=== PATIENT | female | born 1940 | race Caucasian/White ===

== ENCOUNTER 2017-05-09 18:00 | Inpatient (IN) | payer MEDICARE, OTHER ==
--- NOTE | 2017-05-09 18:10 | EDM.PDOC ---
<Deejay Vergara - Last Filed: 05/09/17 18:08> ED HPI GENERAL MEDICAL PROBLEM - General Stated Complaint: INFLUENZA/PNEUMONIA [id number] Time Seen by Provider: 05/09/17 19:05 Source of Information: Reports: Patient History Limitations: Reports: No Limitations - History of Present Illness INITIAL COMMENTS - FREE TEXT/NARRATIVE: This 76 yo female patient was sent to the ED by Dr. Kim ([facility]) due to testing positive for Influenza A and having bilateral pneumonia. Dr. Kim contacted the hospitalist, but was advised to send the patient to the ED for further evaluation and possible admission. - Related Data Allergies Allergy/AdvReac Type Severity Reaction Status Date / Time No Known Allergies Allergy Verified 05/09/17 18:28 Home Meds: Home Meds . [No Known Home Meds] 05/09/17 [History] Course - Vital Signs Last Recorded V/S: Last Vital Signs Temp 99.2 F 05/10/17 03:00 Pulse 76 05/10/17 03:00 Resp 14 05/10/17 03:00 BP 128/60 05/10/17 03:00 Pulse Ox 96 05/10/17 03:00 - Orders/Labs/Meds Orders: Active Orders 24 hr Category Date Time Status CULTURE BLOOD [BC] Stat Lab 05/09/17 18:25 Received CULTURE BLOOD [BC] Stat Lab 05/09/17 18:30 Received Levofloxacin/Dextrose 5%-Water [Levaquin in D5W 750 MG/ Med 05/09/17 21:00 Active 150 ML] 750 mg Premix Bag 1 bag IV Q24H Blood Culture x2 Reflex Set [OM.PC] Stat Oth 05/09/17 18:06 Ordered Medication Orders Acetaminophen (Tylenol) 650 mg PO Q4H PRN PRN Reason: Pain (Mild 1-3)/fever Albuterol/Ipratropium (Duoneb 3.0-0.5 Mg/3 Ml) 3 ml NEB Q4H PRN PRN Reason: shortness of breath/wheezing Docusate Sodium (Colace) 100 mg PO BID PRN PRN Reason: Constipation Enoxaparin Sodium (Lovenox) 40 mg SUBCUT DAILY JENNIFER Levofloxacin/Dextrose 750 mg/ (Premix) 150 mls @ 100 mls/hr IV Q24H JENNIFER Last Admin: 05/09/17 21:31 Dose: 100 mls/hr Sodium Chloride (Normal Saline) 1,000 mls @ 100 mls/hr IV ASDIRECTED [facility] Last Admin: 05/09/17 21:36 Dose: 100 mls/hr Ondansetron HCl (Zofran) 4 mg IVPUSH Q6H PRN PRN Reason: Nausea/Vomiting Oseltamivir Phosphate (Tamiflu) 75 mg PO BID [facility] Stop: 05/14/17 09:01 Polyethylene Glycol (Miralax) 17 gm PO DAILY PRN PRN Reason: Constipation Zolpidem Tartrate (Ambien) 5 mg PO BEDTIME PRN PRN Reason: Sleep Labs: Laboratory Tests 05/09/17 05/09/17 05/09/17 Range/Units 18:25 18:25 18:25 WBC 5.1 (5.0-10.0) 10^3/uL RBC 4.51 (4.2-5.4) 10^6/uL Hgb 13.2 (12.0-16.0) g/dL Hct 39.6 (37.0-47.0) % MCV 87.8 (80-100) fL MCH 29.3 (27.0-34.0) pg MCHC 33.3 (33.0-35.0) g/dL Plt Count 192 (150-450) 10^3/uL Neut % (Auto) 67.3 (42.2-75.2) % Lymph % (Auto) 20.2 L (20.5-50.1) % [place] % (Auto) 12.3 H (2-8) % Eos % (Auto) 0.0 L (1.0-3.0) % Baso % (Auto) 0.2 (0.0-1.0) % Sodium 127 L (135-145) mmol/L Potassium 3.6 (3.6-5.0) mmol/L Chloride 90 L (101-111) mmol/L Carbon Dioxide 29.0 (21.0-31.0) mmol/L Anion Gap 11.6 BUN 9 (7-18) mg/dL Creatinine 0.6 (0.6-1.3) mg/dL Est Cr Clr Drug Dosing 68.05 mL/min Estimated GFR (MDRD) > 60 BUN/Creatinine Ratio 15.00 Glucose 96 (74-105) mg/dL Lactic Acid 1.0 (0.5-2.2) mmol/L Calcium 8.3 L (8.4-10.2) mg/dl Total Bilirubin 0.5 (0.2-1.0) mg/dL AST 47 H (10-42) IU/L ALT 25 (10-60) IU/L Alkaline Phosphatase 37 L (42-121) IU/L B-Natriuretic Peptide (0-100) pg/ml Total Protein 7.1 (6.7-8.2) g/dl Albumin 3.6 (3.2-5.5) g/dl Globulin 3.5 Albumin/Globulin Ratio 1.03 / Range/Units 18:25 WBC (5.0-10.0) 10^3/uL RBC (4.2-5.4) 10^6/uL Hgb (12.0-16.0) g/dL Hct (37.0-47.0) % MCV (80-100) fL MCH (27.0-34.0) pg MCHC (33.0-35.0) g/dL Plt Count (150-450) 10^3/uL Neut % (Auto) (42.2-75.2) % Lymph % (Auto) (20.5-50.1) % [place] % (Auto) (2-8) % Eos % (Auto) (1.0-3.0) % Baso % (Auto) (0.0-1.0) % Sodium (135-145) mmol/L Potassium (3.6-5.0) mmol/L Chloride (101-111) mmol/L Carbon Dioxide (21.0-31.0) mmol/L Anion Gap BUN (7-18) mg/dL Creatinine (0.6-1.3) mg/dL Est Cr Clr Drug Dosing mL/min Estimated GFR (MDRD) BUN/Creatinine Ratio Glucose (74-105) mg/dL Lactic Acid (0.5-2.2) mmol/L Calcium (8.4-10.2) mg/dl Total Bilirubin (0.2-1.0) mg/dL AST (10-42) IU/L ALT (10-60) IU/L Alkaline Phosphatase (42-121) IU/L B-Natriuretic Peptide 31 (0-100) pg/ml Total Protein (6.7-8.2) g/dl Albumin (3.2-5.5) g/dl Globulin Albumin/Globulin Ratio Meds: Medications Generic Name Dose Route Start Last Admin Trade Name Jaeq PRN Reason Stop Dose Admin Acetaminophen 650 mg 05/09/17 20:52 Tylenol PO Q4H PRN Pain (Mild 1-3)/fever Albuterol/Ipratropium 3 ml 05/09/17 20:52 Duoneb 3.0-0.5 Mg/3 Ml NEB Q4H PRN shortness of breath/wheezing Docusate Sodium 100 mg 05/09/17 20:52 Colace PO BID PRN Constipation Enoxaparin Sodium 40 mg 05/10/17 09:00 Lovenox SUBCUT DAILY JENNIFER Levofloxacin/Dextrose 750 mg/ 150 mls @ 100 mls/hr 05/09/17 21:00 05/09/17 21 :31 Premix IV 100 mls/hr Q24H JENNIFER Administration Sodium Chloride 1,000 mls @ 100 mls/hr 05/09/17 21:00 05/09/17 21:36 Normal Saline IV 100 mls/hr ASDIRECTED JENNIFER Administration Ondansetron HCl 4 mg 05/09/17 20:52 Zofran IVPUSH Q6H PRN Nausea/Vomiting Oseltamivir Phosphate 75 mg 05/10/17 09:00 Tamiflu PO 05/14/17 09:01 BID JENNIFER Polyethylene Glycol 17 gm 05/09/17 20:52 Miralax PO DAILY PRN Constipation Zolpidem Tartrate 5 mg 05/09/17 20:52 Ambien PO BEDTIME PRN Sleep Discontinued Medications Generic Name Dose Route Start Last Admin Trade Name Jaeq PRN Reason Stop Dose Admin Sodium Chloride 1,000 mls @ 500 mls/hr 05/09/17 19:19 05/09/17 20:27 Normal Saline IV 05/09/17 21:18 200 mls/hr .BOLUS ONE Administration Oseltamivir Phosphate 75 mg 05/09/17 21:00 05/09/17 21:30 Tamiflu PO Not Given BID JENNIFER Departure - Departure Disposition: Admitted As Inpatient 68 Clinical Impression: Pneumonia, Influenza A, Mild dehydration - Discharge Information <Rachel Duran - Last Filed: 05/10/17 06:16> ED ROS GENERAL - Review of Systems Review Of Systems: See Below Constitutional: Reports: Fever, Chills, Weakness HEENT: Reports: Throat Pain (resolved) Respiratory: Reports: Shortness of Breath, Cough (non productive). Denies: Sputum Cardiovascular: Denies: Chest Pain GI/Abdominal: Reports: Decreased Appetite Musculoskeletal: Reports: Other (aches re) Skin: Reports: No Symptoms, Pallor Neurological: Reports: No Symptoms ED EXAM, GENERAL - Physical Exam Exam: See Below General Appearance: Alert, No Apparent Distress Eye Exam: Bilateral Eye: EOMI Ears: Normal External Exam, Normal TMs Nose: Normal Inspection Throat/Mouth: Normal Inspection, Other (dry membranes) Head: Atraumatic, Normocephalic Neck: Full Range of Motion Respiratory/Chest: Rhonchi, Wheezing Cardiovascular: Normal Peripheral Pulses, Regular Rate, Rhythm GI/Abdominal: Normal Bowel Sounds Back Exam: Normal Inspection, Full Range of Motion Extremities: Normal Inspection, Normal Range of Motion Neurological: Alert, Oriented, Normal Cognition Departure - Departure Time of Disposition: 20:20 Condition: Good
[2017-05-09 18:55] LABS: CHLORIDE,CL 90 mmol/L (101-111); SODIUM,NA 127 mmol/L (135-145)
[2017-05-09] MEDS ORDERED: Sodium Chloride 0.9% 1,000 ML IV ONE (19:19)
[2017-05-09] MEDS ORDERED: Acetaminophen 325 MG Tab PO PRN (20:52)
[2017-05-09] MEDS ORDERED: Ondansetron 4 MG/2 ML SDV IVPUSH PRN (20:52)
[2017-05-09] MEDS ORDERED: Polyethylene Glycol 3350 Powder 17 GM Packet PO PRN (20:52)
[2017-05-09] MEDS ORDERED: Docusate Sodium 100 MG Cap PO PRN (20:52)
[2017-05-09] MEDS ORDERED: Albuterol/Ipratropium 3.0-0.5 MG/3 ML Neb Soln NEB PRN (20:52)
[2017-05-09] MEDS ORDERED: Oseltamivir 75 MG Cap PO SCH (21:00)
--- NOTE | 2017-05-09 21:12 | PCM.HP ---
H&P History of Present Illness - General Date of Service: 05/09/17 Admit Problem/Dx: Admission Diagnosis/Problem Admission Diagnosis/Problem Pneumonia and influenza Source of Information: Patient History Limitations: Reports: No Limitations - History of Present Illness Initial Comments - Free Text/Narative: 69-year-old female without and best medical history and does not take medications presented to the emergency room from clinic for having pneumonia and influenza. Patient stated that since last Saturday she started having cold symptoms of fever, chills, cough, weakness, nausea and vomiting. She had the nausea and vomiting for 2 days and stopped afterward. She stated that her weakness progressively got worse. Her appetite is low. She denies headache, change in vision, sinus congestion, sore throat, chest pain, shortness breath, abdominal pain, diarrhea, or symptoms, lower extremities edema, rash, unilateral weakness/numbness/again, any other symptoms or concern. At the clinic she was found to be positive for influenza A. Rapid strep test was negative. Chest x-ray reported "Abnormal inflammatory changes including multilobar pneumonia, new since September 2006 comparison film." Patient then was sent to the emergency room and her workup reported WBC 5.1. Monocytes 12.3. Hemoglobin 13.2. Platelet 192. Sodium 127. Potassium 3.6. Lactic acid 1.0. Creatinine 0.6. AST 47. AST 25. Alkaline phosphatase because 77. BNP 31. Blood cultures were ordered. - Related Data Allergies/Adverse Reactions: Allergies Allergy/AdvReac Type Severity Reaction Status Date / Time No Known Allergies Allergy Verified 05/09/17 18:28 Home Medications: Home Meds . [No Known Home Meds] 05/09/17 [History] Past Medical History - Past Health History Medical/Surgical History: Denies Medical/Surgical History Social & Family History - Tobacco Use Smoking Status *Q: Never Smoker - Caffeine Use Caffeine Use: Reports: None - Recreational Drug Use Recreational Drug Use: No H&P Review of Systems - Review of Systems: Review Of Systems: ROS reveals no pertinent complaints other than HPI. Exam - Exam Exam: See Below - Vital Signs Vital Signs: Last Vital Signs Temp 37.2 C 05/09/17 20:15 Pulse 70 05/09/17 20:15 Resp 16 05/09/17 20:15 BP 136/63 05/09/17 20:15 Pulse Ox 95 05/09/17 20:15 Weight: 68.946 kg - Exam General: Alert, Oriented, Cooperative. No: Moderate Distress, Severe Distress, Sedated, Lethargic, Obtunded HEENT: Conjunctiva Clear, EACs Clear, EOMI, Hearing Intact, Nares Patent, Normal Nasal Septum, Posterior Pharynx Clear, Pupils Equal, Pupils Reactive, TMs Clear, Other (Dry lips), PERRLA Neck: Supple, Trachea Midline, +2 Carotid Pulse wo Bruit Lungs: Clear to Auscultation, Normal Respiratory Effort, Crackles. No: Decreased Breath Sounds, Rales, Rhonchi, Rub, Stridor, Wheezing Cardiovascular: Regular Rate, Regular Rhythm GI/Abdominal Exam: Normal Bowel Sounds, Soft, Non-Tender, No Organomegaly, No Distention, No Abnormal Bruit (Female) Exam: Deferred Rectal (Female) Exam: Deferred Back Exam: Normal Inspection, Full Range of Motion. No: CVA Tenderness (L), CVA Tenderness (R) Extremities: Normal Inspection, Normal Range of Motion, Non-Tender, No Pedal Edema, Normal Capillary Refill Skin: Warm, Dry, Intact Neurological: Cranial Nerves Intact, Strength Equal Bilateral, Normal Speech, Normal Tone, Sensation Intact Neuro Extensive - Mental Status: Alert, Oriented x3, Normal Mood/Affect Psychiatric: Alert, Normal Affect - Patient Data Result Diagrams: 05/09/17 18:25 05/09/17 18:25 *Q Meaningful Use (ADM) - VTE *Q VTE Criteria *Q: - Stroke *Q Stroke Criteria *Q: - AMI *Q AMI Criteria *Q: - Problem List (1) Pneumonia SNOMED Code(s): 990578582 ICD Code: J18.9 - PNEUMONIA, UNSPECIFIED ORGANISM Status: Acute Current Visit: Yes (2) Influenza A SNOMED Code(s): 857478765 ICD Code: J10.1 - FLU DUE TO OTH IDENT INFLUENZA VIRUS W OTH RESP MANIFEST Status: Acute Current Visit: Yes (3) Hyponatremia SNOMED Code(s): 27388707 ICD Code: E87.1 - HYPO-OSMOLALITY AND HYPONATREMIA Status: Acute Current Visit: Yes (4) Mild dehydration SNOMED Code(s): 8259448206930 ICD Code: E86.0 - DEHYDRATION Status: Acute Current Visit: Yes Problem List Initiated/Reviewed/Updated: Yes Orders Last 24hrs: Active Orders 24 hr Category Date Time Status Patient Status [ADT] Routine ADT 05/09/17 20:52 Ordered Height and Weight [RC] DAILY Care 05/09/17 20:52 Ordered Intake and Output [RC] Q6H Care 05/09/17 20:58 Ordered Notify Provider Vital Signs [RC] ASDIRECTED Care 05/09/17 20:59 Ordered Oxygen Therapy [RC] PRN Care 05/09/17 20:52 Ordered RT Aerosol Therapy [RC] ASDIRECTED Care 05/09/17 21:03 Ordered Up ad Donita [RC] ASDIRECTED Care 05/09/17 20:52 Ordered VTE/DVT Education [RC] PER UNIT ROUTINE Care 05/09/17 20:52 Ordered Vital Signs [RC] Q4H Care 05/09/17 20:52 Ordered PT Evaluation and Treatment [CONS] Routine Cons 05/09/17 20:52 Ordered Regular Diet [DIET] Diet 05/09/17 Breakfast Ordered BASIC METABOLIC PANEL,BMP [CHEM] AM Lab 05/10/17 05:11 Ordered CBC WITH AUTO DIFF [HEME] AM Lab 05/10/17 05:11 Ordered CULTURE SPUTUM + SMEAR [RM] Stat Lab 05/09/17 20:52 Ordered MAGNESIUM [CHEM] AM Lab 05/10/17 05:11 Ordered Acetaminophen [Tylenol] Med 05/09/17 20:52 Ordered 650 mg PO Q4H PRN Albuterol/Ipratropium [DuoNeb 3.0-0.5 MG/3 ML] Med 05/09/17 20:52 Ordered 3 ml NEB Q4H PRN Docusate Sodium [Colace] Med 05/09/17 20:52 Ordered 100 mg PO BID PRN Enoxaparin [Lovenox] Med 05/10/17 09:00 Ordered 40 mg SUBCUT DAILY Levofloxacin/Dextrose 5%-Water [Levaquin in D5W 750 MG/ Med 05/09/17 21:00 Active 150 ML] 750 mg Premix Bag 1 bag IV Q24H Ondansetron [Zofran] Med 05/09/17 20:52 Ordered 4 mg IVPUSH Q6H PRN Oseltamivir [Tamiflu] Med 05/09/17 21:00 Hold 75 mg PO BID Polyethylene Glycol 3350 [MiraLAX] Med 05/09/17 20:52 Ordered 17 gm PO DAILY PRN Sodium Chloride 0.9% [Normal Saline] 1,000 ml Med 05/09/17 21:00 Ordered IV ASDIRECTED Zolpidem [Ambien] Med 05/09/17 20:52 Ordered 5 mg PO BEDTIME PRN Resuscitation Status Routine Resus Stat 05/09/17 20:52 Ordered Medication Orders Sodium Chloride (Normal Saline) 1,000 mls @ 500 mls/hr IV .BOLUS ONE Stop: 05/09/17 21:18 Last Admin: 05/09/17 20:27 Dose: 200 mls/hr Levofloxacin/Dextrose 750 mg/ (Premix) 150 mls @ 100 mls/hr IV Q24H JENNIFER Oseltamivir Phosphate (Tamiflu) 75 mg PO BID JENNIFER Assessment/Plan Comment:: 76-year-old the female without significant past medical history and does not take medications resented with flulike symptoms for 5 days and tested positive for influenza A and chest x-ray showed multilobular infiltrates. She had hypernatremia and her sodium is 127 on admission Plan: -Saline at 500 mL per hour. Then continue IV fluid infusion of normal saline at 100 mL per hour -Tamiflu -Levaquin IV daily -Limited free water consumption to 500 mL per 24 hour for the hypernatremia -Incentive spirometer and flutter device -Awaiting blood cultures -Ordered sputum culture Lovenox for DVT prophylaxis CODE STATUS: Full
[2017-05-09] MEDS: Levofloxacin/Dextrose 5%-Water 750 MG in Premix Bag 1 BAG IV SCH (21:31)
[2017-05-09] MEDS: Sodium Chloride 0.9% 1,000 ML IV SCH (21:36)
[2017-05-10 06:53] LABS: CHLORIDE,CL 95 mmol/L (101-111); SODIUM,NA 130 mmol/L (135-145)
[2017-05-10] MEDS: Sodium Chloride 0.9% 1,000 ML IV SCH (08:11)
[2017-05-10] MEDS: OSELTAMIVIR 75 MG PO SCH ×2 (08:17→21:10)
[2017-05-10] MEDS: Enoxaparin 40 MG/0.4 ML Syringe SUBCUT SCH (08:19)
[2017-05-10] MEDS ORDERED: Magnesium Sulfate/Water 2 GM in Premix Bag 1 BAG IV SCH (08:26)
--- NOTE | 2017-05-10 11:28 | PCM.PN ---
- General Info Date of Service: 05/10/17 Admission Dx/Problem (Free Text): Admission Diagnosis/Problem Admission Diagnosis/Problem Pneumonia and influenza Subjective Update: Patient stated that she is feeling better. Her cough improved. She still feeling weak. She denies fever, chills, nausea, vomiting, chest pain, shortness breath, abdominal pain, diarrhea, urinary symptoms, unilateral weakness/numbness /tingling, lower extension edema, any other symptoms or concerns. - Patient Data Vitals - Most Recent: Last Vital Signs Temp 36.6 C 05/10/17 11:00 Pulse 72 05/10/17 11:00 Resp 20 05/10/17 11:00 BP 108/59 L 05/10/17 11:00 Pulse Ox 95 05/10/17 11:00 Weight - Most Recent: 68.946 kg I&O - Last 24 Hours: Intake & Output 05/09/17 05/10/17 05/10/17 22:59 06:59 14:59 Intake Total 200 1342 240 Output Total 300 900 Balance -100 442 240 Lab Results Last 24 Hours: Laboratory Results - last 24 hr 05/10/17 05/10/17 Range/Units 06:11 06:11 WBC 5.2 (5.0-10.0) 10^3/uL RBC 4.25 (4.2-5.4) 10^6/uL Hgb 12.3 (12.0-16.0) g/dL Hct 37.5 (37.0-47.0) % MCV 88.2 (80-100) fL MCH 28.9 (27.0-34.0) pg MCHC 32.8 L (33.0-35.0) g/dL Plt Count 182 (150-450) 10^3/uL Neut % (Auto) 66.8 (42.2-75.2) % Lymph % (Auto) 18.9 L (20.5-50.1) % [place] % (Auto) 14.3 H (2-8) % Eos % (Auto) 0.0 L (1.0-3.0) % Baso % (Auto) 0.0 (0.0-1.0) % Sodium 130 L (135-145) mmol/L Potassium 3.8 (3.6-5.0) mmol/L Chloride 95 L (101-111) mmol/L Carbon Dioxide 27.0 (21.0-31.0) mmol/L Anion Gap 11.8 BUN 8 (7-18) mg/dL Creatinine 0.6 (0.6-1.3) mg/dL Est Cr Clr Drug Dosing 68.05 mL/min Estimated GFR (MDRD) > 60 BUN/Creatinine Ratio 13.33 Glucose 94 (74-105) mg/dL Calcium 8.1 L (8.4-10.2) mg/dl Magnesium 1.7 L (1.8-2.5) mg/dL Total Bilirubin 0.4 (0.2-1.0) mg/dL AST 38 (10-42) IU/L ALT 21 (10-60) IU/L Alkaline Phosphatase 34 L (42-121) IU/L Total Protein 6.1 L (6.7-8.2) g/dl Albumin 2.9 L (3.2-5.5) g/dl Globulin 3.2 Albumin/Globulin Ratio 0.91 Med Orders - Current: Current Medications Acetaminophen (Tylenol) 650 mg PO Q4H PRN PRN Reason: Pain (Mild 1-3)/fever Albuterol/Ipratropium (Duoneb 3.0-0.5 Mg/3 Ml) 3 ml NEB Q4H PRN PRN Reason: shortness of breath/wheezing Docusate Sodium (Colace) 100 mg PO BID PRN PRN Reason: Constipation Enoxaparin Sodium (Lovenox) 40 mg SUBCUT DAILY [facility] Last Admin: 05/10/17 08:19 Dose: Not Given Levofloxacin/Dextrose 750 mg/ (Premix) 150 mls @ 100 mls/hr IV Q24H [facility] Last Admin: 05/09/17 21:31 Dose: 100 mls/hr Sodium Chloride (Normal Saline) 1,000 mls @ 100 mls/hr IV ASDIRECTED [facility] Last Admin: 05/10/17 08:11 Dose: 100 mls/hr Ondansetron HCl (Zofran) 4 mg IVPUSH Q6H PRN PRN Reason: Nausea/Vomiting Oseltamivir Phosphate (Tamiflu) 75 mg PO BID [facility] Stop: 05/14/17 09:01 Last Admin: 05/10/17 08:17 Dose: 75 mg Polyethylene Glycol (Miralax) 17 gm PO DAILY PRN PRN Reason: Constipation Zolpidem Tartrate (Ambien) 5 mg PO BEDTIME PRN PRN Reason: Sleep Discontinued Medications Sodium Chloride (Normal Saline) 1,000 mls @ 500 mls/hr IV .BOLUS ONE Stop: 05/09/17 21:18 Last Admin: 05/09/17 20:27 Dose: 200 mls/hr Magnesium Sulfate 2 gm/ Premix 50 mls @ 25 mls/hr IV Q2H [facility] Stop: 05/10/17 10:25 Last Admin: 05/10/17 09:29 Dose: 25 mls/hr Oseltamivir Phosphate (Tamiflu) 75 mg PO BID [facility] Last Admin: 05/09/17 21:30 Dose: Not Given - Exam General: Alert, Oriented, Cooperative, No Acute Distress, Other (She is looking weak and frail). No: Mild Distress, Moderate Distress, Severe Distress, Sedated , Lethargic, Obtunded HEENT: Pupils Equal, Pupils Reactive, EOMI, Mucous Membr. Moist/[place] Neck: Supple, Trachea Midline, No JVD Lungs: Normal Respiratory Effort, Crackles (In the left mid burk). No: Rhonchi, Stridor, Wheezing Cardiovascular: Regular Rate, Regular Rhythm GI/Abdominal Exam: Normal Bowel Sounds, Soft, Non-Tender, No Organomegaly, No Distention, No Abnormal Bruit, No Mass (Female) Exam: Deferred Back Exam: No: CVA Tenderness (L), CVA Tenderness (R) Extremities: Normal Inspection, Normal Range of Motion, Non-Tender, No Pedal Edema, Normal Capillary Refill Skin: Warm, Dry, Intact Neurological: No New Focal Deficit Psy/Mental Status: Alert, Normal Affect, Normal Mood - Problem List & Annotations (1) Pneumonia SNOMED Code(s): 661833590 Code(s): J18.9 - PNEUMONIA, UNSPECIFIED ORGANISM Status: Acute Current Visit: Yes (2) Influenza A SNOMED Code(s): 977196948 Code(s): J10.1 - FLU DUE TO OTH IDENT INFLUENZA VIRUS W OTH RESP MANIFEST Status: Acute Current Visit: Yes (3) Hyponatremia SNOMED Code(s): 41008179 Code(s): E87.1 - HYPO-OSMOLALITY AND HYPONATREMIA Status: Acute Current Visit: Yes (4) Mild dehydration SNOMED Code(s): 4666850655419 Code(s): E86.0 - DEHYDRATION Status: Acute Current Visit: Yes - Problem List Review Problem List Initiated/Reviewed/Updated: Yes - My Orders Last 24 Hours: My Active Orders 05/09/17 21:11 Incentive Spirometry [RT Incentive Spirometry] [RC] ASDIRECTED RT Chest Physiotherapy [RC] ASDIRECTED 05/10/17 09:00 Oseltamivir [Tamiflu] 75 mg PO BID 05/10/17 10:25 Telemetry Monitoring [Cardiac Monitoring] [RC] . DIRECTED 05/10/17 Breakfast Fluid Restriction [DIET] 05/11/17 05:11 BASIC METABOLIC PANEL,BMP [CHEM] AM CBC WITH AUTO DIFF [HEME] AM - Plan Plan:: 76-year-old the female without significant past medical history and does not take medications resented with flulike symptoms for 5 days and tested positive for influenza A and chest x-ray showed multilobular infiltrates. She had hypernatremia and her sodium is 127 on admission Sodium level improved from 127 to 1:30 Plan: -Patient received 2-3 L of normal saline for IV -Continue Tamiflu by mouth and Levaquin IV daily -Continue to limit free water consumption to 500 mL per 24 hour for the hypernatremia -Incentive spirometer and flutter device -Awaiting blood cultures -sputum culture ordered Lovenox for DVT prophylaxis CODE STATUS: Full
[2017-05-10] MEDS: Levofloxacin/Dextrose 5%-Water 750 MG in Premix Bag 1 BAG IV SCH (21:01)
[2017-05-10] MEDS: Zolpidem 5 MG Tab PO PRN (21:28)
[2017-05-11 07:03] LABS: CHLORIDE,CL 99 mmol/L (101-111); SODIUM,NA 134 mmol/L (135-145)
[2017-05-11] MEDS: Enoxaparin 40 MG/0.4 ML Syringe SUBCUT SCH (09:03)
[2017-05-11] MEDS: OSELTAMIVIR 75 MG PO SCH ×2 (09:03→20:10)
--- NOTE | 2017-05-11 11:22 | PCM.PN ---
- General Info Date of Service: 05/11/17 Admission Dx/Problem (Free Text): Admission Diagnosis/Problem Admission Diagnosis/Problem Pneumonia and influenza Subjective Update: Patient stated that she is feeling better. Her cough improved. She still feeling weak. She denies fever, chills, nausea, vomiting, chest pain, shortness breath, appetite is good and slept well at night . Functional Status: Reports: Pain Controlled, Tolerating Diet, Ambulating, Urinating - Review of Systems General: Reports: Weakness, Malaise, Appetite (Improving). Denies: Fever, Chills HEENT: Denies: Post Nasal Drip, Sinus Congestion, Sore Throat, Visual Changes Pulmonary: Reports: Cough. Denies: Shortness of Breath, Pleuritic Chest Pain, Sputum, Wheezing Cardiovascular: Denies: Chest Pain, Dyspnea on Exertion, Lightheadedness Gastrointestinal: Denies: Abdominal Pain, Difficulty Swallowing, Melena, Nausea , Vomiting Genitourinary: Denies: Dysuria, Frequency, Incontinence, Flank Pain Musculoskeletal: Denies: Neck Pain, Shoulder Pain Skin: Denies: Cyanosis, Jaundice, Bruising, Pruritis, Rash Neurological: Denies: Confusion, Numbness, Tremors Psychiatric: Denies: Confusion, Anxiety - Patient Data Vitals - Most Recent: Last Vital Signs Temp 37.0 C 05/11/17 08:29 Pulse 68 05/11/17 08:29 Resp 20 05/11/17 08:29 BP 107/55 L 05/11/17 08:29 Pulse Ox 93 L 05/11/17 08:29 Weight - Most Recent: 51.075 kg I&O - Last 24 Hours: Intake & Output 05/10/17 05/11/17 05/11/17 22:59 06:59 14:59 Intake Total 1200 235 120 Output Total 600 1000 Balance 600 -765 120 Lab Results Last 24 Hours: Laboratory Results - last 24 hr 05/11/17 05/11/17 Range/Units 06:00 06:00 WBC 4.6 L (5.0-10.0) 10^3/uL RBC 4.12 L (4.2-5.4) 10^6/uL Hgb 11.9 L (12.0-16.0) g/dL Hct 36.6 L (37.0-47.0) % MCV 88.8 (80-100) fL MCH 28.9 (27.0-34.0) pg MCHC 32.5 L (33.0-35.0) g/dL Plt Count 183 (150-450) 10^3/uL Neut % (Auto) 50.1 (42.2-75.2) % Lymph % (Auto) 35.0 (20.5-50.1) % [place] % (Auto) 14.7 H (2-8) % Eos % (Auto) 0.0 L (1.0-3.0) % Baso % (Auto) 0.2 (0.0-1.0) % Sodium 134 L (135-145) mmol/L Potassium 3.8 (3.6-5.0) mmol/L Chloride 99 L (101-111) mmol/L Carbon Dioxide 27.0 (21.0-31.0) mmol/L Anion Gap 11.8 BUN 8 (7-18) mg/dL Creatinine 0.5 L (0.6-1.3) mg/dL Est Cr Clr Drug Dosing 79.59 mL/min Estimated GFR (MDRD) > 60 Glucose 99 (74-105) mg/dL Calcium 8.0 L (8.4-10.2) mg/dl [place] Results Last 24 Hours: Microbiology 05/10/17 15:49 Gram Stain - Final Sputum - Expectorated Med Orders - Current: Current Medications Acetaminophen (Tylenol) 650 mg PO Q4H PRN PRN Reason: Pain (Mild 1-3)/fever Albuterol/Ipratropium (Duoneb 3.0-0.5 Mg/3 Ml) 3 ml NEB Q4H PRN PRN Reason: shortness of breath/wheezing Last Admin: 05/10/17 21:13 Dose: 3 ml Albuterol/Ipratropium (Duoneb 3.0-0.5 Mg/3 Ml) 3 ml NEB Q8HRRT [facility] Docusate Sodium (Colace) 100 mg PO BID PRN PRN Reason: Constipation Enoxaparin Sodium (Lovenox) 40 mg SUBCUT DAILY [facility] Last Admin: 05/11/17 09:03 Dose: 40 mg Levofloxacin/Dextrose 750 mg/ (Premix) 150 mls @ 100 mls/hr IV Q24H [facility] Last Infusion: 05/10/17 22:31 Dose: Infused Ondansetron HCl (Zofran) 4 mg IVPUSH Q6H PRN PRN Reason: Nausea/Vomiting Oseltamivir Phosphate (Tamiflu) 75 mg PO BID [facility] Stop: 05/14/17 09:01 Last Admin: 05/11/17 09:03 Dose: 75 mg Polyethylene Glycol (Miralax) 17 gm PO DAILY PRN PRN Reason: Constipation Zolpidem Tartrate (Ambien) 5 mg PO BEDTIME PRN PRN Reason: Sleep Last Admin: 05/10/17 21:28 Dose: 5 mg Discontinued Medications Sodium Chloride (Normal Saline) 1,000 mls @ 500 mls/hr IV .BOLUS ONE Stop: 05/09/17 21:18 Last Admin: 05/09/17 20:27 Dose: 200 mls/hr Sodium Chloride (Normal Saline) 1,000 mls @ 100 mls/hr IV ASDIRECTED [facility] Last Admin: 05/10/17 08:11 Dose: 100 mls/hr Magnesium Sulfate 2 gm/ Premix 50 mls @ 25 mls/hr IV Q2H [facility] Stop: 05/10/17 10:25 Last Infusion: 05/10/17 11:56 Dose: Infused Oseltamivir Phosphate (Tamiflu) 75 mg PO BID [facility] Last Admin: 05/09/17 21:30 Dose: Not Given - Exam Quality Assessment: DVT Prophylaxis. No: Supplemental Oxygen, Urine Catheter General: Alert, Oriented, Cooperative, No Acute Distress HEENT: Pupils Equal, EOMI, Mucous Membr. Moist/[place] Neck: Supple, No JVD, No Thyromegaly Lungs: Clear to Auscultation, Normal Respiratory Effort, Crackles (to B/L lowe lobe) Cardiovascular: Regular Rate, Regular Rhythm, Murmurs GI/Abdominal Exam: Normal Bowel Sounds, Soft, Non-Tender, No Distention. No: Guarding, Rigid, Rebound, Tender (Female) Exam: Deferred Back Exam: Normal Inspection, Full Range of Motion Extremities: Normal Inspection, No Pedal Edema Skin: Warm, Dry, Intact Neurological: No New Focal Deficit Psy/Mental Status: Alert, Normal Affect, Normal Mood - Problem List Review Problem List Initiated/Reviewed/Updated: Yes - My Orders Last 24 Hours: My Active Orders 05/11/17 09:21 RT Aerosol Therapy [RC] ASDIRECTED 05/11/17 09:22 RT Incentive Spirometry [RC] ASDIRECTED 05/11/17 09:23 Flutter Valve Therapy [RT Chest Physiotherapy] [RC] ASDIRECTED 05/11/17 15:00 Albuterol/Ipratropium [DuoNeb 3.0-0.5 MG/3 ML] 3 ml NEB Q8HRRT - Plan Plan:: 76-year-old the female with no significant past medical history and does not take medications presented with flulike symptoms for 5 days and tested positive for influenza A and chest x-ray showed multilobular infiltrates. Impression and Plan: Influenza and Multilober Pneumonia: -Continue Tamiflu by mouth and Levaquin IV daily -Continue to limit free water consumption to 500 mL per 24 hour for the hypornatremia -encourage use of Incentive spirometer and flutter device -Will continue Duonebs every 8 hrs - blood cultures showing no growth yet -sputum culture ordered ( no growth) -Will likely be able to go home tomorrow DVT Prophylexis: Enoxaperin CODE STATUS: Full
[2017-05-11] MEDS: Albuterol/Ipratropium 3.0-0.5 MG/3 ML Neb Soln NEB SCH ×2 (16:00→22:14)
[2017-05-11] MEDS: Levofloxacin/Dextrose 5%-Water 750 MG in Premix Bag 1 BAG IV SCH (20:09)
[2017-05-11] MEDS: Zolpidem 5 MG Tab PO PRN (21:42)
[2017-05-12] MEDS: Albuterol/Ipratropium 3.0-0.5 MG/3 ML Neb Soln NEB SCH (07:13)
[2017-05-12] MEDS: Enoxaparin 40 MG/0.4 ML Syringe SUBCUT SCH (08:32)
[2017-05-12] MEDS: OSELTAMIVIR 75 MG PO SCH (08:32)
--- NOTE | 2017-05-12 08:41 | PCM.DCSUM1 ---
Discharge Summary - Hospital Course Free Text/Narrative:: This is s 69-year-old female without any significant past Medical history presented to the emergency room from clinic for having pneumonia and influenza. Patient stated that since last Saturday ( 05/05/17) she started having cold symptoms of fever, chills, cough, weakness, nausea and vomiting. She had the nausea and vomiting for 2 days and stopped afterward. She stated that her weakness progressively got worse. Her appetite is low. At the clinic she was found to be positive for influenza A. Rapid strep test was negative. Chest x- ray reported "Abnormal inflammatory changes including multilobar pneumonia, new since September 2006 comparison film." Patient then was sent to the emergency room and her workup reported WBC 5.1. Hemoglobin 13.2. Sodium 127. Potassium 3.6. Blood cultures were ordered Remained negative. She was treated with oral Tamiflu and Levofloxacin. She feels better and no fever or chill, appetite is good and slept well last night. She is ready to go home today and will have follow up with PMD in this week HPI Initial Comments: This is s 69-year-old female without any significant past Medical history presented to the emergency room from clinic for having pneumonia and influenza. Patient stated that since last Saturday ( 05/05/17) she started having cold symptoms of fever, chills, cough, weakness, nausea and vomiting. She had the nausea and vomiting for 2 days and stopped afterward. She stated that her weakness progressively got worse. Her appetite is low. At the clinic she was found to be positive for influenza A. Rapid strep test was negative. Chest x- ray reported "Abnormal inflammatory changes including multilobar pneumonia, new since September 2006 comparison film." Patient then was sent to the emergency room and her workup reported WBC 5.1. Hemoglobin 13.2. Sodium 127. Potassium 3.6. Blood cultures were ordered Remained negative. She was treated with oral Tamiflu and Levofloxacin. she is also placed on fluid restriction for Hyponatremia and now sodium is acceptable ( sodium was 134 on 05/11/17). She feels better and no fever or chill, appetite is good and slept well last night. She is ready to go home today and will have follow up with PMD in this week. Continue fluid restriction at 1200 ml/24 hrs - Discharge Data Discharge Date: 05/12/17 Discharge Disposition: Home, Self-Care 01 Condition: Stable - Patient Instructions Diet: Usual Diet as Tolerated, Fluid Restriction (1500 ml/24 hrs) Fluid Restriction: 1200 ml/24 hrs Activity: As Tolerated Showering/Bathing: May Shower Notify Provider of: Fever, Nausea and/or Vomiting Other/Special Instructions: This is s 69-year-old female without any significant past Medical history presented to the emergency room from clinic for having pneumonia and influenza. Patient stated that since last Saturday ( 05/05) she started having cold symptoms of fever, chills, cough, weakness, nausea and vomiting. She had the nausea and vomiting for 2 days and stopped afterward. She stated that her weakness progressively got worse. Her appetite is low. At the clinic she was found to be positive for influenza A. Rapid strep test was negative. Chest x-ray reported "Abnormal inflammatory changes including multilobar pneumonia, new since September 2006 comparison film." Patient then was sent to the emergency room and her workup reported WBC 5.1. Hemoglobin 13.2. Sodium 127. Potassium 3.6. Blood cultures were ordered Remained negative. She was treated with oral Tamiflu and IV Levofloxacin and also placed on Fluid restriction for hyponatremia. She feels better and no fever otr chill, appetite is good and slept well last night. She is ready to go home today. She will be going home on Tamiflu 75 mg BID ( will complete total 5 days course) and also take Levofloxacin 500 mg daily X 7 days course. She is advised to follow with PMD in this week and continue fluid restriction at 1200 ml/24 hrs. - Discharge Plan Prescriptions/Med Rec: Levofloxacin 500 mg PO DAILY #7 tablet Oseltamivir Phosphate [IJD: Tamiflu] 75 mg PO BID #5 capsule Home Medications: Home Meds Levofloxacin 500 mg PO DAILY #7 tablet 05/12/17 [Rx] Oseltamivir Phosphate [IJD: Tamiflu] 75 mg PO BID #5 capsule 05/12/17 [Rx] Patient Handouts: Influenza, Adult, [id number], Hyponatremia, [id number], Droplet Precautions, [id number], Oseltamivir capsules, Levofloxacin tablets, Community-Acquired Pneumonia, Adult, [id number] Forms: ED Department Discharge Referrals: PCP,None [Primary Care Provider] - - Discharge Summary/Plan Comment DC Time >30 min.: Yes Discharge Summary/Plan Comment: This 76-year-old the female with no significant past medical history and does not take medications presented with flulike symptoms for 5 days and tested positive for influenza A and chest x-ray showed multilobular infiltrates. Impression and Plan: Influenza and Multilober Pneumonia: -Continue Tamiflu by mouth ( complete total 5 days course) and Levaquin 500 mg daily X 7 days course -Continue to limit free water consumption to 1200 mL per 24 hour for the hypornatremia - blood cultures showing no growth yet -sputum culture ordered ( no growth) -Follow with PMD in this week 2. Hyponatremia: responded well to fluid restriction, continue fluid restriction at 1200 ml/24 hrs 3. Disposition: will be going home today, advise to follow with PMD in this week - General Info Date of Service: 05/12/17 Admission Dx/Problem (Free Text: Admission Diagnosis/Problem Admission Diagnosis/Problem Pneumonia, Hyponatremia and influenza Subjective Update: Patient stated that she is feeling better. Her cough improved. She denies fever , chills, nausea, vomiting, chest pain, shortness breath, appetite is good and slept well at night . Functional Status: Reports: Pain Controlled, Tolerating Diet, Ambulating, Urinating - Review of Systems General: Reports: Weakness (mild), Appetite (good). Denies: Fever, Chills HEENT: Denies: Ear Pain, Headaches, Sinus Congestion, Sore Throat, Visual Changes Pulmonary: Denies: Shortness of Breath, Cough, Sputum, Wheezing Cardiovascular: Denies: Chest Pain, Orthopnea, Lightheadedness Gastrointestinal: Denies: Abdominal Pain, Diarrhea, Difficulty Swallowing, Melena, Nausea, Vomiting Genitourinary: Denies: Dysuria, Frequency, Burning, Urgency, Retention, Flank Pain Musculoskeletal: Denies: Neck Pain, Arm Pain, Back Pain, Leg Pain, Joint Pain Skin: Denies: Cyanosis, Jaundice, Dryness, Bruising, Pruritis, Rash Neurological: Denies: Confusion, Numbness, Tremors Psychiatric: Denies: Confusion, Anxiety - Patient Data Vitals - Most Recent: Last Vital Signs Temp 36.6 C 05/12/17 07:50 Pulse 73 05/12/17 07:50 Resp 20 05/12/17 07:50 BP 122/63 05/12/17 07:50 Pulse Ox 98 05/12/17 07:50 Weight - Most Recent: 50.893 kg I&O - Last 24 hours: Intake & Output 05/11/17 05/12/17 05/12/17 22:59 06:59 14:59 Intake Total 790 240 210 Output Total 300 Balance 490 240 210 Med Orders - Current: Current Medications Acetaminophen (Tylenol) 650 mg PO Q4H PRN PRN Reason: Pain (Mild 1-3)/fever Albuterol/Ipratropium (Duoneb 3.0-0.5 Mg/3 Ml) 3 ml NEB Q4H PRN PRN Reason: shortness of breath/wheezing Last Admin: 05/10/17 21:13 Dose: 3 ml Albuterol/Ipratropium (Duoneb 3.0-0.5 Mg/3 Ml) 3 ml NEB Q8HRRT [facility] Last Admin: 05/12/17 07:13 Dose: 3 ml Docusate Sodium (Colace) 100 mg PO BID PRN PRN Reason: Constipation Enoxaparin Sodium (Lovenox) 40 mg SUBCUT DAILY [facility] Last Admin: 05/12/17 08:32 Dose: Not Given Levofloxacin/Dextrose 750 mg/ (Premix) 150 mls @ 100 mls/hr IV Q24H [facility] Last Infusion: 05/11/17 21:43 Dose: Infused Ondansetron HCl (Zofran) 4 mg IVPUSH Q6H PRN PRN Reason: Nausea/Vomiting Oseltamivir Phosphate (Tamiflu) 75 mg PO BID [facility] Stop: 05/14/17 09:01 Last Admin: 05/12/17 08:32 Dose: 75 mg Polyethylene Glycol (Miralax) 17 gm PO DAILY PRN PRN Reason: Constipation Zolpidem Tartrate (Ambien) 5 mg PO BEDTIME PRN PRN Reason: Sleep Last Admin: 05/11/17 21:42 Dose: 5 mg Discontinued Medications Sodium Chloride (Normal Saline) 1,000 mls @ 500 mls/hr IV .BOLUS ONE Stop: 05/09/17 21:18 Last Admin: 05/09/17 20:27 Dose: 200 mls/hr Sodium Chloride (Normal Saline) 1,000 mls @ 100 mls/hr IV ASDIRECTED [facility] Last Admin: 05/10/17 08:11 Dose: 100 mls/hr Magnesium Sulfate 2 gm/ Premix 50 mls @ 25 mls/hr IV Q2H [facility] Stop: 05/10/17 10:25 Last Infusion: 05/10/17 11:56 Dose: Infused Oseltamivir Phosphate (Tamiflu) 75 mg PO BID [facility] Last Admin: 05/09/17 21:30 Dose: Not Given - Exam Quality Assessment: Reports: DVT Prophylaxis. Denies: Supplemental Oxygen, Urine Catheter General: Reports: Alert, Oriented, Cooperative, No Acute Distress HEENT: Reports: Pupils Equal, EOMI, Mucous Membr. Moist/[place] Neck: Reports: Supple, No JVD, No Thyromegaly Lungs: Reports: Clear to Auscultation, Normal Respiratory Effort, Crackles (b?L lung base), Other Cardiovascular: Reports: Regular Rate, Regular Rhythm, Murmurs GI/Abdominal Exam: Normal Bowel Sounds, Soft, Non-Tender, No Distention. No: Guarding, Rigid, Rebound, Tender (Female) Exam: Deferred Rectal (Female) Exam: Deferred Back Exam: Reports: Normal Inspection, Full Range of Motion Extremities: Normal Inspection, No Pedal Edema Skin: Reports: Warm, Dry, Intact Neurological: Reports: No New Focal Deficit, Normal Gait, Normal Speech Psy/Mental Status: Reports: Alert, Normal Affect, Normal Mood *Q Meaningful Use (DIS) - VTE *Q VTE Criteria *Q: - Stroke *Q Stroke Criteria *Q: - AMI *Q AMI Criteria *Q:
== END 2017-05-12 12:24 | disposition home or self-care (01) | DRG 194 ==
LOC: DL.ED 18:00 → UNDOADMIN 20:12 → DL.MS 20:12
PROVIDERS: ADMIT Family Medicine; ATTEND Family Medicine
DX: J11.00 Influenza due to unidentified influenza virus with unspecified type of pneumonia (principal); E87.1 Hypo-osmolality and hyponatremia; E86.0 Dehydration
CPT/HCPCS: 36415; 80053; 83605; 83880; 85025; 87040 ×2; 93005; 99284; J7030; 80048; 83735; 87070; 87077; 87186; 87205; 93010; 94010; 94640; 94667; 97162-GP; A9270-GY; J1650; J1956; J3475